=== PATIENT | male | born 1990 | race Caucasian/White ===

== ENCOUNTER 2017-12-12 16:46 | Inpatient (IN) | payer OTHER ==
[~2017-12-12] VITALS: Ht 185.4 cm; Wt 95.3 kg
--- NOTE | 2017-12-12 19:11 | NUR ---
Admission note Pt is a 27 yo male, A+Ox4, presenting to [facility] for ETOH Withdrawal. Pt appears intoxicated but in stable condition. V/S WNL. Pt has NKA, is on Full code status, and on Regular diet. Pt is 6'1" ini height and 210 LBS in weight. Pt has medical HX of HTN and Back SX. Pt has family HX of DMII, HTN, and Alcoholism from Father. Pt has no primary care provider. Pt has been drinking Alcohol for 15 years (9 years currently), has reached a level of 12 -8% beers/daily, and last drink was 12 -8% beers on 12-12-17 @1830. Pt has been taking home medication of Lisinopril 40mg QD, last dose taken @0900. Pt has no HX of previous detox. Pt states "The last time i was sober was 9 years ago for 11 months.". Pt has been a cigarette smoker for 11 years, the patient states "I vape now but when i smoke i average about 10-15 cigarettes daily.". Respirations even and unlabored. Will continue to monitor.
[2017-12-12] MEDS ORDERED: ONDANSETRON 4 MG/2 ML VIAL IM PRN (20:45)
[2017-12-12] MEDS ORDERED: DICYCLOMINE HCL 20 MG TABLET PO PRN (20:45)
[2017-12-12] MEDS ORDERED: LORAZEPAM 2 MG/1 ML VIAL IM PRN (20:45)
[2017-12-12] MEDS ORDERED: ONDANSETRON ODT 4 MG TAB.RAPDIS SL PRN (20:45)
[2017-12-12] MEDS ORDERED: MAGNESIUM HYDROXIDE 30 ML LIQUID UDC PO PRN (20:45)
[2017-12-12] MEDS ORDERED: NICOTINE POLACRILEX 4 MG GUM-PK OF TEN BC PRN (20:45)
[2017-12-12] MEDS ORDERED: ACETAMINOPHEN 325 MG TABLET PO PRN (20:45)
[2017-12-12] MEDS ORDERED: LOPERAMIDE HCL 2 MG CAPSULE PO PRN ×2 (20:45)
[2017-12-12] MEDS ORDERED: MIRALAX 17 GM POWD.PACK PO PRN (20:45)
[2017-12-12] MEDS ORDERED: IBUPROFEN 400 MG TABLET PO PRN (20:45)
[2017-12-12] MEDS ORDERED: MAG HYDROX/AL HYDROX/SIMETH 30 ML LIQUID UDC PO PRN (20:45)
[2017-12-12] MEDS ORDERED: LORAZEPAM 1 MG TABLET PO PRN ×2 (20:45)
[2017-12-12] MEDS ORDERED: THIAMINE HCL 200 MG/2 ML VIAL IM ONE (20:45)
[2017-12-12] MEDS ORDERED: NICOTINE 14 MG/24HR PATCH TD PRN (20:45)
--- NOTE | 2017-12-12 20:45 | NUR ---
Pre admission note Pt seen in intake office. Pt appears intoxicated but in stable condition. V/S WNL. Respirations even and unlabored. Pt is A+Ox4. Policies on medication disposal explained to and understood by patient. Will admit to unit. Will continue to monitor.
[2017-12-12 21:16] LABS: BASOPHILS # (AUTO) 0.1 K/uL (0.0-8.0); BASOPHILS % (AUTO) 0.7 % (0.0-2.0); EOSINOPHILS # (AUTO) 0.3 K/uL (0.0-0.7); EOSINOPHILS % (AUTO) 2.6 % (0.0-7.0); HEMATOCRIT 48.9 % (36.7-47.1); HEMOGLOBIN 16.8 g/dL (12.5-16.3); LYMPHOCYTES # (AUTO) 3.4 K/uL (20.0-40.0); LYMPHOCYTES % (AUTO) 33.6 % (20.5-51.5); MEAN CORPUSCULAR HEMOGLOBIN 30.6 uug (23.8-33.4); MEAN CORPUSCULAR HGB CONC 34 g/dL (32.5-36.3); MEAN CORPUSCULAR VOLUME 89.2 fL (73.0-96.2); MONOCYTES % (AUTO) 9.5 % (0.0-11.0); NEUTROPHILS # (AUTO) 5.5 K/uL (1.8-8.9); NEUTROPHILS % (AUTO) 53.6 % (38.5-71.5); PLATELET COUNT (AUTO) 428 K/uL (152-348); RED BLOOD CELL COUNT(AUTO) 5.48 MIL/uL (4.06-5.63); WHITE BLOOD COUNT (AUTO) 10.2 K/uL (3.6-10.2)
[2017-12-12 21:26] VITALS: BP 123/80
[2017-12-12 21:27] LABS: BILIRUBIN,TOTAL 0.2 mg/dL (0.2-1.0); MAGNESIUM 2.3 mg/dL (1.8-2.4); POTASSIUM 4.8 mmol/L (3.5-5.1); TOTAL PROTEIN, SERUM 8.6 g/dL (6.4-8.2)
[2017-12-12 21:34] LABS: *AMPHETAMINE, URINE NEGATIVE (NEGATIVE); *BARBITURATE, URINE NEGATIVE (NEGATIVE); *CANNABINOID, URINE NEGATIVE (NEGATIVE); *COCCAINE, URINE NEGATIVE (NEGATIVE); *OPIATE, URINE NEGATIVE (NEGATIVE); *PHENCYCLIDINE SCREEN,URINE NEGATIVE (NEGATIVE)
[2017-12-12] MEDS ORDERED: LISI40TA4 PO (21:53)
[2017-12-12] MEDS ORDERED: SALI10LI TP (21:53)
[2017-12-12] MEDS ORDERED: AZIT250T13 PO (21:53)
[2017-12-12] MEDS ORDERED: LORAZEPAM 1 MG TABLET PO SCH (22:30)
[2017-12-13 00:24] VITALS: BP 101/52
[2017-12-13 04:19] VITALS: BP 108/64
--- NOTE | 2017-12-13 06:54 | NUR ---
End of shift note Newly admitted patient. Pt was continuously noted with anxiety, agitation, and restlessness. Pt left room periodically to smoke on smoking patio and to get food from kitchen. Pt has been placed on a 5 day Ativan taper to begin today. V/S were WNL during shift. Pt was not given any PRNs during shift. Pt slept for a total of 6 HRS. Last CIWA: 7 @0400. Respirations even and unlabored. Will endorse to day shift nurse.
--- NOTE | 2017-12-13 07:30 | NUR ---
START OF SHIFT Pt 27 y/o male admitted for etoh withdrawal. Pt received in room awake in bathroom. Pt alert and oriented to name, place, and time. Perrla. Skin warm and moist to touch. Respirations even and unlabored. Bilateral hand tremors noticeably noted. Pt appears disheveled and unkempt. Scattered clothes throughout the room. Empty bottles of water scattered throughout the room. Last reported ciwa = 7 @2100. It was reported that pt slept for 6 hours last night. Bed on lowest position with side rails x2 up for safety. Call light within reach. Pt is currently on a 5 day ativan and is on day 1.
[2017-12-13 08:00] VITALS: BP 140/83
[2017-12-13] MEDS ORDERED: TUBERCULIN,PURIF.PROT.DERIV. 5 TU/0.1 ML TEST ID ONE (09:00)
[2017-12-13] MEDS: PATIENT MAY USE OWN MED- MD OK PO SCH (09:11)
[2017-12-13] MEDS: FOLIC ACID 1 MG TABLET PO SCH (09:12)
[2017-12-13] MEDS: LORAZEPAM 1 MG TABLET PO SCH ×4 (09:12→20:55)
[2017-12-13] MEDS: THIAMINE HCL 100 MG TABLET PO SCH (09:12)
[2017-12-13] MEDS: MULTIVITAMINS,THERAPEUTIC TABLET PO SCH (09:12)
--- NOTE | 2017-12-13 09:20 | NUR ---
Client prompted client to come to all groups/activities today to engage with others and not be isolated in his room. Therapist encouraged client to try to share his feeling/thoughts so he does not build up feelings/thoughts which may negatively impact him. Therapist encouraged client to also meet with therapist if they feel they cannot cope with going to group so they can have one/one therapy session to help process feelings/thoughts.
[2017-12-13 12:00] VITALS: BP 140/88
[2017-12-13 16:00] VITALS: BP 142/94
[2017-12-13] MEDS: CLONIDINE HCL 0.1 MG TABLET PO PRN (17:14)
--- NOTE | 2017-12-13 17:19 | NUR ---
PRN Pt with bj=318/94. Catapres po prn per MD order given and tolerated well.
--- NOTE | 2017-12-13 18:19 | NUR ---
PRN EVAL Pt with zm=414/88
--- NOTE | 2017-12-13 18:47 | NUR ---
END OF SHIFT Pt 27 y/o male admitted for etoh withdrawal. Pt received in room awake in bathroom. Pt alert and oriented to name, place, and time. Perrla. Skin warm and moist to touch. Respirations even and unlabored. Bilateral hand tremors noticeably noted. Pt appears disheveled and unkempt. Scattered clothes throughout the room. Pt with blunt affect and is easily irritable. Pt observed mostly isolative to room, but did attend group activity. Pt was seen by MD today. Pt medication compliant and tolerated well. No ASE noted. Pt is on a 5 day ativan taper and is on day 1. Ciwas=11@0800, 9@1200, and 9@1600. Bed on lowest position with side rails x 2 up for safety. Call light within reach.
--- NOTE | 2017-12-13 19:10 | NUR ---
Start of shift note Received report from day shift nurse. Pt is a 27 yo male, A+Ox4, presenting to [facility] for ETOH withdrawal. Pt noted with anxiety, agitation, restlessness and messy room with food and drinks on side table and dresser. Pt is on 5 day Ativan taper, tolerated well. Pt has HX of HTN and back SX which will be monitored during shift. Respirations even and unlabored. Will continue to monitor.
[2017-12-13 20:07] VITALS: BP 139/80
[2017-12-14 00:27] VITALS: BP 134/76
[2017-12-14 04:34] VITALS: BP 129/79
--- NOTE | 2017-12-14 06:51 | NUR ---
End of shift note Pt was continuously noted with restlessness, agitation and anxiety. Pt was out of room frequently to smoke on smoking patio, to get food from kitchen, and to interact with other patients in recreational room. Pt was not given any PRNs during shift. Pt slept for a total of 3 HRS. Last CIWA: 9 @0400. Respirations even and unlabored. Will endorse to day shift nurse. Addendum: 12/14/17 at 0717 by ESTHELA HERNANDEZ LVN Pt slept for a total of 6 HRS
--- NOTE | 2017-12-14 07:30 | NUR ---
START OF SHIFT Pt 27 y/o male admitted for etoh withdrawal. Pt received in room on bed with eyes closed resting, but easily arousable to name. Pt alert and oriented to name, place, and time. Perrla. Skin warm and moist to touch. Respirations even and unlabored. Bilateral hand tremors noted. Pt appears flushed on face. Pt appears disheveled and unkempt. Clothes scattered throughout the room. It was reported that pt slept for 6 hours last night. Last reported ciwa=9@2100. Pt is currently on a a 5 day ativan taper and is on day 2. Bed on lowest position with side rails x2 up for safety. Call light within reach.
[2017-12-14 08:00] VITALS: BP 123/76
[2017-12-14 08:06] LABS: HEPATITIS B SURFACE AG Negative (Negative)
[2017-12-14] MEDS: FOLIC ACID 1 MG TABLET PO SCH (08:34)
[2017-12-14] MEDS: PATIENT MAY USE OWN MED- MD OK PO SCH (08:35)
[2017-12-14] MEDS: LORAZEPAM 1 MG TABLET PO SCH ×3 (08:35→20:19)
[2017-12-14] MEDS: THIAMINE HCL 100 MG TABLET PO SCH (08:35)
[2017-12-14] MEDS: MULTIVITAMINS,THERAPEUTIC TABLET PO SCH (08:35)
--- NOTE | 2017-12-14 10:00 | NUR ---
NSG ENTRY Pt observed in room isolative. Pt with low motivation for self care. Pt easily irritable.
[2017-12-14 12:00] VITALS: BP 103/67
[2017-12-14 16:00] VITALS: BP 119/76
--- NOTE | 2017-12-14 16:41 | NUR ---
Therapist prompted client to attend daily group sessions. Client stated that he would attend the next group session.
--- NOTE | 2017-12-14 18:40 | NUR ---
END OF SHIFT Pt 27 y/o male admitted for etoh withdrawal. Pt received in room awake in bathroom. Pt alert and oriented to name, place, and time. Perrla. Skin warm and moist to touch. Respirations even and unlabored. Bilateral hand tremors noticeably noted. Pt appears disheveled and unkempt. Scattered clothes throughout the room. Pt is easily irritable. Pt with episodes of agitation this morning. Pt observed mostly isolative to room, but did attend group activity. Pt was seen by MD today. Pt medication compliant and tolerated well. No ASE noted. Pt is on a 5 day ativan taper and is on day 2. Ciwas=9@0800, 9@1200, and 9@1600. Bed on lowest position with side rails x 2 up for safety. Call light within reach.
--- NOTE | 2017-12-14 19:12 | NUR ---
Start of shift note Received report from day shift nurse. Pt is a 27 yo male, A+Ox4, presenting to [facility] for ETOH withdrawal. Pt noted with anxiety, restlessness, and agitated mood. Pt is on 5 day Ativan taper, tolerated well. Pt has HX od HTN and back SX which will be monitored during shift. Respirations even and unlabored. Will continue to monitor.
[2017-12-14 20:37] VITALS: BP 124/72
[2017-12-14] MEDS: diphenhydrAMINE 50 MG CAPSULE PO PRN (21:37)
--- NOTE | 2017-12-14 21:37 | NUR ---
PRN Benadryl Pt c/o inability to sleep and requested for PRN Benadryl. Medication given and tolerated well. Will reassess within 1 HR. Will continue to monitor.
--- NOTE | 2017-12-14 22:30 | NUR ---
PRN Benadryl Reassessment Medication effective. Pt is resting well in bed. No s/s of ASE noted at this time. Respirations even and unlabored. Will continue to monitor.
[2017-12-15 00:40] VITALS: BP 128/78
[2017-12-15 04:10] VITALS: BP 124/77
--- NOTE | 2017-12-15 06:49 | NUR ---
End of shift note Pt was continuously noted with anxiety, agitation, and restlessness. Pt was out of room frequently to smoke on smoking patio, to get food from kitchen, and to interact with other patients in recreational room. Pt was given PRN Benadryl for inability to sleep @2136. Pt slept for a total of 9 HRS. Last CIWA: 9 @0400. Respirations even and unlabored. Will endorse to day shift nurse.
--- NOTE | 2017-12-15 07:30 | NUR ---
START OF SHIFT Pt 27 y/o male admitted for etoh withdrawal. Pt received in room on bed with eyes closed resting, but easily arousable to name. Pt alert and oriented to name, place, and time. Perrla. Skin warm and moist to touch. Respirations even and unlabored. Bilateral hand tremors noted. Pt appears disheveled and unkempt. Open empty bottles scattered throughout the room. Encouraged to maintain hygiene. It was reported that pt slept for 9 hours last night. Last reported ciwa=9@2100. Pt is currently on a a 5 day ativan taper and is on day 3. Bed on lowest position with side rails x2 up for safety. Call light within reach.
[2017-12-15 08:00] VITALS: BP 124/67
[2017-12-15] MEDS: THIAMINE HCL 100 MG TABLET PO SCH (08:31)
[2017-12-15] MEDS: MULTIVITAMINS,THERAPEUTIC TABLET PO SCH (08:31)
[2017-12-15] MEDS: FOLIC ACID 1 MG TABLET PO SCH (08:31)
[2017-12-15] MEDS: PATIENT MAY USE OWN MED- MD OK PO SCH (08:54)
[2017-12-15] MEDS ORDERED: LORAZEPAM 1 MG TABLET PO SCH ×2 (09:00→21:00)
[2017-12-15 12:00] VITALS: BP 131/81
[2017-12-15] MEDS: LORAZEPAM 1 MG TABLET PO SCH ×2 (12:03→16:32)
[2017-12-15 16:00] VITALS: BP 122/80
--- NOTE | 2017-12-15 17:19 | NUR ---
Therapist prompted client to attend daily group sessions. Client stated to therapist that he would attend the next group.
--- NOTE | 2017-12-15 18:47 | NUR ---
END OF SHIFT Pt 27 y/o male admitted for etoh withdrawal. Pt received in room awake in bathroom. Pt alert and oriented to name, place, and time. Perrla. Skin warm and moist to touch. Respirations even and unlabored. Bilateral hand tremors noticeably noted. Pt appears disheveled and unkempt. Scattered clothes throughout the room. Pt is easily irritable. Pt also with agitated episode this morning. Pt observed mostly isolative to room, but did attend group activity. Pt was seen by MD today. Pt medication compliant and tolerated well. No ASE noted. Pt is on a 5 day ativan taper and is on day 3. Ciwas=9@0800, 9@1200, and 9@1600. Bed on lowest position with side rails x 2 up for safety. Call light within reach.
--- NOTE | 2017-12-15 19:15 | NUR ---
START OF SHIFT Patient is a 27-year-old male admitted on 12/12/17 for ETOH withdrawal. Patient is currently on a 5-day Ativan taper, day 3, tolerating well. Patient's last CIWA was 9 per day shift, with no PRNs given during day shift. Upon assessment, patient appears disheveled and unshaven. Patient appears older than stated age. Patient's room is messy, with clothes strewn about and a clutter of food wrappers and empty water bottles. Patient reports feeling anxious and states he has difficulty sleeping at night. Patient is on fall and seizure precautions with no history of seizure. Safety measures in place, side rails up x2, bed locked in low position, call light within reach. Will continue to monitor.
[2017-12-15 20:00] VITALS: BP 154/85
[2017-12-15] MEDS: CLONIDINE HCL 0.1 MG TABLET PO PRN (20:32)
[2017-12-15] MEDS: diphenhydrAMINE 50 MG CAPSULE PO PRN (20:32)
--- NOTE | 2017-12-15 20:32 | NUR ---
PRN BENADRYL AND CLONIDINE Patient reports difficulty sleeping and requests sleep aid. PRN Benadryl given PO. Patient has elevated BP of 154/71, HR 91. PRN Clonidine 0.1mg given PO for increased BP. Safety measures in place, call light within reach. Will monitor for effectiveness.
--- NOTE | 2017-12-15 21:32 | NUR ---
PRN BENADRYL AND CLONIDINE REASSESSMENT Patient states "I'm not sleepy yet. I don't think the Benadryl has kicked in." PRN Benadryl not effective. Patient's BP has dropped to 123/71, HR 70. PRN Clonidine effective. Safety measures in place, call light within reach. Will continue to monitor.
--- NOTE | 2017-12-16 | NUR ---
VITALS REFUSED, CIWA DEFERRED Patient refused midnight vital signs. Respirations even and unlabored, 16/min. CIWA deferred due to patient sleeping; to be assessed and scored while patient is awake. Safety measures in place, call light within reach. Will continue to monitor.
[2017-12-16 04:00] VITALS: BP 108/60
--- NOTE | 2017-12-16 04:00 | NUR ---
CIWA DEFERRED CIWA deferred due to patient sleeping; to be assessed and scored while patient is awake. Patient's respirations are even and unlabored, 16/min. Safety measures in place, call light within reach. Will continue to monitor.
--- NOTE | 2017-12-16 07:05 | NUR ---
END OF SHIFT Patient is a 27-year-old male admitted on 12/12/17 for ETOH withdrawal. Patient is currently on a 5-day Ativan taper, tolerating well. Today will be day 4. Patient's last CIWA was 10. Patient received PRN Benadryl for sleep aid and PRN Clonidine for elevated BP. PRN Clonidine was effective in decreasing patient's BP, however, patient states that PRN Benadryl was not very effective. Patient slept for 5 hours, total intake of 1,134 ml, void x1, stool x0 . Patient is on fall and seizure precautions with no history of seizure. Safety measures in place, side rails up x2, bed locked in low position, call light within reach. Will endorse to day shift.
[2017-12-16 08:00] VITALS: BP 107/66
--- NOTE | 2017-12-16 08:01 | NUR ---
START OF SHIFT NOTE Patient is 27 year old male admitted for Opioid withdrawal. Patient continues with 5 days Ativan taper tolerating well. Per endorsement patient was given PRN Benadryl not really effective per night nurse, Clonidine effective per night nurse, slept for 5 hours and last CIWA score was-10. Patient received alert awake, complaining of body aches, anxious, agitated, hot cold sweats. Patient has thrown clothes on the floor, empty bottles on the floor. Educated patient with plan of the day and importance of compliant to medication and treatment with good verbal understanding. Safety measures in place. Will cont with plan of care. Addendum: 12/16/17 at 0805 by KARLA TAY LVN ERROR -Patient admitted for ETOH withdrawal not for Opioid withdrawal.
[2017-12-16] MEDS: FOLIC ACID 1 MG TABLET PO SCH (08:17)
[2017-12-16] MEDS: LORAZEPAM 1 MG TABLET PO SCH ×3 (08:17→20:48)
[2017-12-16] MEDS: MULTIVITAMINS,THERAPEUTIC TABLET PO SCH (08:17)
[2017-12-16] MEDS: THIAMINE HCL 100 MG TABLET PO SCH (08:17)
[2017-12-16] MEDS: PATIENT MAY USE OWN MED- MD OK PO SCH (08:19)
[2017-12-16 13:41] VITALS: BP 139/77
[2017-12-16 16:00] VITALS: BP 137/89
--- NOTE | 2017-12-16 19:23 | NUR ---
END OF SHIFT NOTE Patient is alert awake oriented. Patient presented with anxiety, agitation, worried, labile facial expression. Patient continues with Ativan taper tolerating well. During shift patient did not requires and requested and PRN medication. Vital signs WNL. Skin intact warm and dry to touch. Encourage pt to develop coping skills and utilization of non pharmacological intervention. Patient was encouraged to participates in groups therapy session. Encourage diversional activities to alleviate anxiety. Patient denies any SI/HI. Safety measures in place. Patient endorsed to night nurse in stable condition.
--- NOTE | 2017-12-16 19:30 | NUR ---
START OF SHIFT Patient is a 27-year-old male admitted on 12/12/17 for ETOH withdrawal. Patient is currently on a 5-day Ativan taper, day 4, tolerating well. Patient's last CIWA was 12 per day shift, with no PRNs given during day shift. Upon assessment, patient appears disheveled and unshaven and emotionally labile. Patient's room is unorganized and cluttered with patient's belongings and trash. Patient reports feeling anxious and states he has difficulty sleeping at night and is requesting the "same medications as last night." Patient is on fall and seizure precautions with no history of seizure. Safety measures in place, side rails up x2, bed locked in low position, call light within reach. Will continue to monitor.
[2017-12-16 20:00] VITALS: BP 157/100
[2017-12-16] MEDS: diphenhydrAMINE 50 MG CAPSULE PO PRN (20:48)
[2017-12-16] MEDS: CLONIDINE HCL 0.1 MG TABLET PO PRN (20:48)
--- NOTE | 2017-12-16 20:48 | NUR ---
PRN CLONIDINE AND BENADRYL Patient has elevated BP of 157/100, HR 101. PRN Clonidine 0.1mg given PO. Patient also reports difficulty sleeping and is requesting aid. PRN Benadryl given PO. Safety measures in place, call light within reach. Will monitor for effectiveness.
--- NOTE | 2017-12-16 21:48 | NUR ---
PRN CLONIDINE AND BENADRYL REASSESSMENT Patient's BP is 126/84, HR 82; PRN Clonidine effective. Patient is still ambulating around the unit, "not sleepy yet." PRN Benadryl not effect at this time. Safety measures in place, call light within reach. Will continue to monitor.
[2017-12-17] VITALS: BP 119/72
--- NOTE | 2017-12-17 | NUR ---
CIWA DEFERRED CIWA deferred due to patient sleeping; to be assessed and scored while patient is awake. Respirations are even and unlabored, 16/min. Safety measures in place, side rails up x2, bed locked in low position, call light within reach. Will continue to monitor.
[2017-12-17 04:00] VITALS: BP 109/79
--- NOTE | 2017-12-17 07:02 | NUR ---
END OF SHIFT Patient is a 27-year-old male admitted on 12/12/17 for ETOH withdrawal. Patient is currently on a 5-day Ativan taper, today will be day 5, tolerating well. Patient's last CIWA was 10. Patient received PRN Clonidine for elevated BP and PRN Benadryl for sleep aid; both were effective. Patient slept for 7 hours, total intake of 1,500 mL, void x4, stool x1. Patient is on fall and seizure precautions with no history of seizure. Safety measures in place, side rails up x2, bed locked in low position, call light within reach. Will endorse to day shift.
--- NOTE | 2017-12-17 07:45 | NUR ---
START OF SHIFT NOTE Patient is 27 year old male admitted for ETOH withdrawal. Patient continues with 5 days Ativan taper tolerating well. Per endorsement patient was given PRN Benadryl,Clonidine effective per night nurse, slept for 7 hours and last CIWA score was-10. Patient received alert awake, complaining of anxiety, agitated, sweats. Educated patient with plan of the day and importance of compliant to medication and treatment with good verbal understanding. Safety measures in place. Will cont with plan of care.
[2017-12-17 08:00] VITALS: BP 114/65
[2017-12-17] MEDS: THIAMINE HCL 100 MG TABLET PO SCH (08:39)
[2017-12-17] MEDS: LORAZEPAM 1 MG TABLET PO SCH ×2 (08:39→20:33)
[2017-12-17] MEDS: MULTIVITAMINS,THERAPEUTIC TABLET PO SCH (08:39)
[2017-12-17] MEDS: PATIENT MAY USE OWN MED- MD OK PO SCH (08:39)
[2017-12-17] MEDS: FOLIC ACID 1 MG TABLET PO SCH (08:39)
[2017-12-17 12:00] VITALS: BP 138/87
[2017-12-17 16:00] VITALS: BP 150/90
[2017-12-17] MEDS: CLONIDINE HCL 0.1 MG TABLET PO PRN (17:34)
--- NOTE | 2017-12-17 17:34 | NUR ---
PRN CLONIDINE Patient's blood pressure noted 150/90.PRN Clonidine 0.1mg PO given as ordered. Will cont to monitor and reassess the pt.
--- NOTE | 2017-12-17 18:34 | NUR ---
CLONIDINE REASSESSMENT Blood pressure noted 133/78 Clonidine was effective.
--- NOTE | 2017-12-17 19:18 | NUR ---
END OF SHIFT NOTE Patient is alert awake oriented. Patient presented with anxiety, agitation, Fatigue. Patient continues with Ativan taper tolerating well. During shift patient did not requires and requested and PRN medication. Vital signs WNL. Skin intact warm and dry to touch. Encourage pt to develop coping skills and utilization of non pharmacological intervention. Patient was encouraged to participates in groups therapy session. Patient noted attending groups and activities.Patient compliant with medications and treatment. Encourage diversional activities to alleviate anxiety. Patient denies any SI/HI. Safety measures in place. Patient endorsed to night nurse in stable condition.
[2017-12-17] MEDS: diphenhydrAMINE 50 MG CAPSULE PO PRN (20:33)
--- NOTE | 2017-12-17 20:35 | NUR ---
A/O x4 Lying on bed watching Tv c/o slight anxiety and diaphoresis. CIWA 3 Patient continues with 5 days Ativan taper tolerating well. Educated patient with plan of the day and importance of compliant to medication and treatment with good verbal understanding. Safety measures in place. Will cont with plan of care.
--- NOTE | 2017-12-17 21:30 | NUR ---
PRN Given Benadryl 50 mg po for insomonia effective.
[2017-12-17 21:52] VITALS: BP 136/94
[2017-12-18 00:06] VITALS: BP 136/94
--- NOTE | 2017-12-18 04:16 | NUR ---
Deferred CIWA and V/S
[2017-12-18 04:20] VITALS: BP 136/94
--- NOTE | 2017-12-18 06:26 | NUR ---
End of Shift: Lying in bed eyes closed resp even and unlab appears resting comfortably. Slept 6 hours. Siderails up,Call light within reach. Continue to observe for safety and give am shift report. Last CIWA 3
[2017-12-18 08:00] VITALS: BP 135/88
--- NOTE | 2017-12-18 08:10 | NUR ---
START OF SHIFT NOTE Patient is 27 year old male admitted for ETOH withdrawal. Patient continues with 5 days Ativan taper tolerating well. Per endorsement patient was given PRN Benadryl effective per night nurse, slept for 6 hours and last CIWA score was-3. Patient received alert awake, anxiety, agitated, sweats, Tremors, light headed. Patient id due for scheduled medications. Educated patient with plan of the day and importance of compliant to medication and treatment with good verbal understanding. Safety measures in place. Will cont with plan of care.
[2017-12-18] MEDS: THIAMINE HCL 100 MG TABLET PO SCH (08:11)
[2017-12-18] MEDS: FOLIC ACID 1 MG TABLET PO SCH (08:12)
[2017-12-18] MEDS: MULTIVITAMINS,THERAPEUTIC TABLET PO SCH (08:12)
[2017-12-18] MEDS: PATIENT MAY USE OWN MED- MD OK PO SCH (08:12)
[2017-12-18] MEDS ORDERED: LORAZEPAM 1 MG TABLET PO SCH (09:00)
[2017-12-18 12:00] VITALS: BP 138/86
[2017-12-18] MEDS ORDERED: CLON0.1T14 PO (13:11)
[2017-12-18] MEDS ORDERED: IBUP-1953 PO (13:11)
[2017-12-18] MEDS ORDERED: DIPH50CA37 PO (13:11)
[2017-12-18] MEDS ORDERED: LISI40TA4 PO (13:11)
[2017-12-18 16:00] VITALS: BP 153/92
[2017-12-18] MEDS: CLONIDINE HCL 0.1 MG TABLET PO PRN (17:14)
--- NOTE | 2017-12-18 17:14 | NUR ---
PRN CLONIDINE Patient's blood pressure noted 153/92.PRN Clonidine 0.1mg PO given as ordered. Will cont to monitor and reassess the pt.
--- NOTE | 2017-12-18 18:14 | NUR ---
CLONIDINE REASSESSMENT Blood pressure noted 128/76 Clonidine was effective.
--- NOTE | 2017-12-18 19:06 | NUR ---
END OF SHIFT NOTE Patient is alert awake oriented x4. Patient presented with anxiety, agitation. Patient completed his Ativan taper tolerating well. During shift patient received PRN Clonidine 0.1mg PO noted to be effective.Vital signs WNL. Skin intact warm and dry to touch. Patient was encouraged to participates in groups therapy session. Patient noted attending groups and activities. Patient compliant with medications and treatment. Patient set for discharge in the morning. Encourage diversional activities to alleviate anxiety. Patient denies any SI/HI. Safety measures in place. Patient endorsed to night nurse in stable condition.
[2017-12-18 20:00] VITALS: BP 138/90
--- NOTE | 2017-12-18 20:00 | NUR ---
START OF SHIFT NOTE RECEIVED REPORT FROM DAY SHIFT NURSE. PATIENT IS A 27 YEAR OLD MALE ADMITTED FOR ETOH WITHDRAWAL. PATIENT COMPLETED ATIVAN TAPER. PATIENT IS MEDICALLY CLEARED TO BE DISCHARGE TOMORROW. PATIENT WAS GIVEN PRN CLONIDINE FOR BP-153/92. LATEST BP- 128/76. LAST CIWA 5. RECEIVED PATIENT IN THE ROOM. PATIENT JUST CAME FROM GROUP. PATIENT STATES HE'S JUST ANXIOUS FOR LEAVING. SAFETY MEASURES IN PLACE. CALL LIGHT IN REACH. WILL CONTINUE TO MONITOR
--- NOTE | 2017-12-18 20:33 | NUR ---
PRN BENADRYL ADMINISTRATION PATIENT REQUESTS FOR SLEEP AID. WILL MONITOR FOR EFFECTIVENESS
--- NOTE | 2017-12-18 23:00 | NUR ---
PRN [place] RE-ASSESSMENT PATIENT IN BED ASLEEP WITH EYES CLOSED. RESPIRATION EVEN AND UNLABORED. WILL CONTINUE TO MONITOR.
--- NOTE | 2017-12-19 | NUR ---
CIWA DEFERRED PATIENT IN BED ASLEEP WITH EYES CLOSED. RESPIRATION EVEN AND UNLABORED. WILL CONTINUE TO MONITOR.
--- NOTE | 2017-12-19 04:00 | NUR ---
CIWA DEFERRED PATIENT IN BED ASLEEP WITH EYES CLOSED. RESPIRATION EVEN AND UNLABORED. WILL CONTINUE TO MONITOR.
--- NOTE | 2017-12-19 06:34 | NUR ---
END OF SHIFT NOTE PATIENT SLEPT 6 HOURS. FLUID INTAKE 1,500 ML. VOIDED X 4. BM X 1. PATIENT IS DISCHARGING TODAY. PATIENT WAS ANXIOUS FOR LEAVING. POSITIVE ENCOURAGEMENT GIVEN. PATIENT COMPLIANT WITH MEDICATION AND TREATMENT PLAN. MEDICATION TOLERATED WELL AND NO ADVERSE REACTION. LAST BP WAS 138/90. PRN BENADRYL GIVEN FOR SLEEP. SAFETY MEASURES IN PLACE. CALL LIGHT IN REACH. WILL CONTINUE TO MONITOR. LAST CIWA 1.
--- NOTE | 2017-12-19 07:00 | NUR ---
Start of Shift [employer] Tester received report on 27 year old male admitted to [facility] on 12/12/17 for medical management for withdrawal of ETOH. Pt has completed Ativan taper and is scheduled to discharge to [facility] this am. Pt is a full code and regular diet, NKDA. PMH of HTN. [employer] Model [employer] Tester encounters pt resting in bed with eyes closed, rise and fall of chest noted. Even and unlabored respirations. Bed in low position with wheels locked and side rails up x2. Will continue to monitor, support and encourage according to plan of
[2017-12-19] MEDS: MULTIVITAMINS,THERAPEUTIC TABLET PO SCH (08:29)
[2017-12-19] MEDS: FOLIC ACID 1 MG TABLET PO SCH (08:29)
[2017-12-19] MEDS: THIAMINE HCL 100 MG TABLET PO SCH (08:29)
[2017-12-19] MEDS: PATIENT MAY USE OWN MED- MD OK PO SCH (08:30)
--- NOTE | 2017-12-19 09:28 | NUR ---
Discharge Pt educated on discharge process. Educated on medication indication, route and timing. Pt provided with prescriptions for outpatient. Pt educated on discharge instructions. Provided with copies of labs, scripts, and all other associated paperwork. Pt's home medication retuned. All personal effects returned. Pt is calm and cooperative. VS stable. A/O x4 and able to make needs known. Clear thought and speech process. Normal affect with congruent mood. Pt is excited and hopeful for the future. Denies HI/SI or A/VH or any other associated symptoms. Pt is escorted to awaiting car per ambulation and is driven via private transportaion to [facility], [facility]
== END 2017-12-19 09:28 | disposition other institution (70) | DRG 895 ==
LOC: SRC 20:03
PROVIDERS: ADMIT Internal Medicine; ATTEND Internal Medicine
PROC: HZ2ZZZZ Detoxification Services for Substance Abuse Treatment (ICD-10-PCS; principal; 2017-12-12)
PROC: HZ41ZZZ Group Counseling for Substance Abuse Treatment, Behavioral (ICD-10-PCS; 2017-12-13)
PROC: HZ31ZZZ Individual Counseling for Substance Abuse Treatment, Behavioral (ICD-10-PCS; 2017-12-14)
DX: F10.239 Alcohol dependence with withdrawal, unspecified (principal); I15.9 Secondary hypertension, unspecified; F14.10 Cocaine abuse, uncomplicated; I10 Essential (primary) hypertension; F15.10 Other stimulant abuse, uncomplicated; Z91.89 Other specified personal risk factors, not elsewhere classified; F90.9 Attention-deficit hyperactivity disorder, unspecified type; F41.9 Anxiety disorder, unspecified; Z83.3 Family history of diabetes mellitus; Z82.49 Family history of ischemic heart disease and other diseases of the circulatory system; Z82.0 Family history of epilepsy and other diseases of the nervous system; Z81.1 Family history of alcohol abuse and dependence; F17.290 Nicotine dependence, other tobacco product, uncomplicated; Z59.1 Inadequate housing; Y90.7 Blood alcohol level of 200-239 mg/100 ml; F32.9 Major depressive disorder, single episode, unspecified; R73.9 Hyperglycemia, unspecified
CPT/HCPCS: 36415; 70030-TC; 80307; 83735; 85025; 86580; 86592; 86705; 86803; 87340; 87806; G0480; J3411; Q0163